=== PATIENT | male | born 1960 | race Caucasian/White ===

== ENCOUNTER 2019-07-25 05:18 | Day surgery (SDC) | payer OTHER ==
[2019-07-25] VITALS (10 sets, daily range): BP systolic 101–148; BP diastolic 50–88
[~2019-07-25] VITALS: Ht 160 cm; Wt 84.8 kg
[~2019-07-25 05:18] MED LIST: METOPROLOL TART25 MG ORAL; TRIAMTERENE-HC1 EAC6 ORAL; ceFAZolin sod 1 GM in NS 55 ML IVPB ONE
[2019-07-25] MEDS ORDERED: cefOXitin 1gm Inj ONE (07:06)
[2019-07-25] MEDS ORDERED: Succinylcholine 20mg/ml 10ml vial ONE (07:07)
[2019-07-25] MEDS ORDERED: Rocuronium Bromide 50mg/5ml Inj IV ONE (07:07)
[2019-07-25] MEDS ORDERED: fentaNYL 100 mcg/2 mL IV ONE (07:09)
[2019-07-25] MEDS ORDERED: Propofol 200mg/20ml IV ONE ×2 (07:10→08:02)
[2019-07-25] MEDS ORDERED: Lidocaine 1% MPF 10mg/ml 5ml ONE (07:10)
[2019-07-25] MEDS ORDERED: Midazolam 2mg/2ml Inj ONE (07:10)
[2019-07-25] MEDS ORDERED: Iothalamate Meglumine 60% 50ML INJ ONE (07:28)
[2019-07-25] MEDS ORDERED: NS Irrig 1000ml ONE (07:30)
[2019-07-25] MEDS ORDERED: LR 1000ml ONE (07:30)
[2019-07-25] MEDS ORDERED: Sterile Water Irrig 1000ml IRRIG ONE (07:30)
[2019-07-25] MEDS ORDERED: NS Irrig 2000ml IRRIG ONE ×2 (07:30→08:10)
[2019-07-25] MEDS ORDERED: Neostigmine 1mg/ml 10ml Inj ONE (07:30)
[2019-07-25] MEDS ORDERED: Sterile Water Irrig 2000ml IRRIG ONE ×2 (07:30→08:20)
--- NOTE | 2019-07-25 07:44 | Pre-Procedure Note/Attestation ---
Pre-Procedure Note/Attestation Complete Prior to Procedure Planned Procedure: bilateral Procedure Narrative: cysto, RPG, bladder biopsy, TURBT Indications for Procedure Pre-Operative Diagnosis: bladder tumor Attestation I attest that I discussed the nature of the procedure; its benefits; risks and complications; and alternatives (and the risks and benefits of such alternatives ), prior to the procedure, with the patient (or the patient's legal fulfillment representative). I attest that, if there was a reasonable possibility of needing a blood transfusion, the patient (or the patient's legal fulfillment representative) was given the [facility] standardized written summary, pursuant to the Quinn Corey Blood Safety Act ([place] Health and Safety Code # 1645, as amended). I attest that I re-evaluated the patient just prior to the surgery and that there has been no change in the patient's H&P, except as documented below: Andrés Segundo MD Jul 25, 2019 07:44
--- NOTE | 2019-07-25 07:44 | Urology Progress Note ---
Assessment/Plan Assessment/Plan: hematuria hx bladder tumor BPH proceed with TURBT,/bx/RPG preop labs and imaging noted cardiac cleared d/w pt fully Subjective Allergies: Coded Allergies: TETRACYCLINES (Verified Allergy, Severe, PALPITATIONS, HIVES, 07/25/19) Subjective for surg today Objective Last 24 Hour Vital Signs Date Time Temp Pulse Resp B/P (MAP) Pulse Ox O2 Delivery O2 Flow Rate FiO2 07/25/19 05:56 98.4 83 20 148/88 99 Room Air 07/25/19 05:51 Room Air Height (Feet): 5 Height (Inches): 3.00 Weight (Pounds): 187 Objective exam stable Andrés Segundo MD Jul 25, 2019 07:44
[2019-07-25] MEDS ORDERED: Ketorolac 30mg Inj ONE (08:03)
[2019-07-25] MEDS ORDERED: LR 1000ml 1,000 ML IVLG SCH (08:22)
--- NOTE | 2019-07-25 08:22 | Anethesia Preoperative Eval ---
Anesthesia Pre-op PMH/ROS General Date of Evaluation: Jul 25, 2019 Time of Evaluation: 07:18 Anesthesiologist: Jim ASA Score: ASA 2 Mallampati Score Class I : Soft palate, uvula, fauces, pillars visible Class II: Soft palate, uvula, fauces visible Class III: Soft palate, base of uvula visible Class IV: Only hard plate visible Mallampati Classification: Class II Surgeon: Sanya Diagnosis: Bladder tumor Surgical Procedure: Cysto TURBT Anesthesia History: none Family History: no anesthesia problems Allergies: Coded Allergies: TETRACYCLINES (Verified Allergy, Severe, PALPITATIONS, HIVES, 07/25/19) Medications: see eMAR Patient NPO?: Yes Past Medical History Cardiovascular: Reports: HTN - stable on pills Pulmonary: Denies: asthma, COPD, BRANDON, other Gastrointestinal/Genitourinary: Reports: GERD; Denies: CRI, ESRD, other Neurologic/Psychiatric: Denies: dementia, CVA, depression/anxiety, TIA, other Endocrine: Denies: DM, hypothyroidism, steroids, other HEENT: Denies: cataract (L), cataract (R), glaucoma, EKUK (L), EKUK (R), other Hematology/Immune: Denies: anemia, DVT, bleeding disorder, other Musculoskeletal/Integumentary: Denies: OA, RA, DJD, DDD, edema, other Other: other - overweight PMH Narrative: as above PSxH Narrative: none Anesthesia Pre-op Phys. Exam Physician Exam Last Vital Signs Date Time Temp Pulse Resp B/P (MAP) Pulse Ox O2 Delivery O2 Flow Rate FiO2 07/25/19 05:56 98.4 83 20 148/88 99 Room Air Constitutional: NAD Neurologic: CN 2-12 intact Cardiovascular: RRR Respiratory: CTA Gastrointestinal: S/NT/ND Airway Exam Mallampati Score: Class II MO: full Neck: flexible ROM: full Teeth: intact Dentures: no upper, no lower Anesthesia Pre-op A/P Labs see chart Studies Pre-op Studies: EKG - SR Risk Assessment & Plan Assessment: ASA 2 Plan: GA with ETT Status Change Before Surgery: No Pre-Antibiotics Drug: Cefoxitin 1gr Given Within 1 Hr of Incision: Yes Time Given: 08:05 Jl Fernandez MD Jul 25, 2019 08:22
[2019-07-25] MEDS ORDERED: Glycopyrrolate 0.2mg/ml 1ml Vial ONE (08:24)
[2019-07-25] MEDS ORDERED: Hydromorphone 0.5mg/0.5ml inj IVP PRN (08:30)
[2019-07-25] MEDS ORDERED: DiphenhydrAMINE 50mg/ml Inj IVP PRN (08:30)
[2019-07-25] MEDS ORDERED: Ketorolac 30mg Inj IV PRN (08:30)
--- NOTE | 2019-07-25 08:53 | Brief Operative Note ---
Immediate Post Operative Note Operative Note Pre-op Diagnosis: bladder tumor Procedure: cysto, urethral calib, bilat RPG, bladder bx, TURBT Post-op Diagnosis: same as pre-op plus - urethral stricture Surgeon: raymond Anesthesiologist: sabrina Anesthesia: general Specimen: yes Complications: none Condition: stable Fluids: NS Estimated Blood Loss: minimal Implant(s) used?: No Andrés Segundo MD Jul 25, 2019 08:53
--- NOTE | 2019-07-25 09:08 | Immediate Post-Op Evaluation ---
Immediate Post-Op Evalulation Immediate Post-Op Evalulation Procedure: Cysto retrograde pyelogram TURBT Date of Evaluation: Jul 25, 2019 Time of Evaluation: 09:07 IV Fluids: 800 Blood Products: none Estimated Blood Loss: n/a Urinary Output: n/a Blood Pressure Systolic: 104 Blood Pressure Diastolic: 56 Pulse Rate: 76 Respiratory Rate: 20 O2 Sat by Pulse Oximetry: 99 Temperature (Fahrenheit): 98.1 Pain Score (1-10): 1 Nausea: No Vomiting: No Complications none Patient Status: awake, patent, none Hydration Status: adequate Jl Fernandez MD Jul 25, 2019 09:08
--- NOTE | 2019-07-25 10:22 | 48 Hour Post Anesthesia Eval ---
Post Anesthesia Evaluation Procedure: Cysto retrograde pyelogram TURBT Date of Evaluation: Jul 25, 2019 Time of Evaluation: 10:20 Blood Pressure Systolic: 132 0: 56 Pulse Rate: 68 Respiratory Rate: 20 Temperature (Fahrenheit): 97.8 O2 Sat by Pulse Oximetry: 98 Airway: patent Nausea: No Vomiting: No Pain Intensity: 1 Hydration Status: adequate Cardiopulmonary Status: stable Mental Status/LOC: patient returned to baseline Follow-up Care/Observations: n/a Post-Anesthesia Complications: none Follow-up care needed: ready to discharge Jl Fernandez MD Jul 25, 2019 10:22
--- NOTE | 2019-07-25 11:15 | Operative Note - Dictated ---
DATE OF OPERATION: 07/25/2019 PREOPERATIVE DIAGNOSIS: Bladder tumor. POSTOPERATIVE DIAGNOSES: Bladder tumor and also urethral stricture. PROCEDURE PERFORMED: Cystoscopy, urethral calibration with bilateral retrograde pyelogram, random bladder biopsies, and transurethral resection of bladder tumor. OPERATING SURGEON: Andrés Segundo M.D. ANESTHESIOLOGIST: Jl Fernandez M.D. ANESTHESIA: General. INDICATION FOR PROCEDURE: This is a pleasant 58-year-old male. He has a history of hematuria. He had a recent workup that showed bladder tumor consistent with primary urothelial carcinoma. He had a CT scan that did not show any metastasis. He was brought in for resection of the tumor. The nature of the procedure including possible risks and complication of bleeding, infection, anesthesia, damage to the urethra, bladder, need for further surgeries, etc. were discussed. No guarantees were given or implied. FINDINGS: The patient had a papillary bladder tumor at the right lateral posterior wall. There was a small satellite lesion next to it. The rest of the bladder was clear. Bilateral pyelograms were normal. He had an incidental finding of severe bulbar urethral stenosis. PROCEDURE IN DETAIL: Informed consent was obtained from the patient. The patient was then brought to the operating room and then placed in supine position. After successful general anesthesia was induced, the patient was then placed in a modified dorsal lithotomy position. Genitalia was then prepped and draped in usual sterile fashion. Preoperative IV antibiotics were administered. A time-out was performed. The patient was noted to have meatal stenosis, which was dilated. Cystoscopy was performed. The patient had significant stenosis at the meatus and his distal urethra with significant resistance to even passage of the cystoscope. The prostate was mildly obstructed. The bladder was inspected carefully with both the 30 and 70 degree lenses. The patient had a papillary tumor of the right posterior lateral wall, which I would estimate was about maybe 2 cm or so with a small satellite lesion next to it. The rest of the bladder was clear, both ureteral orifices with clear efflux. At this point, the right ureteral orifice was cannulated with an open-ended catheter. Retrograde pyelogram was done, which showed normal upper tract without filling defects and this was also repeated on the left side with similar findings. At this point, using the cold cup biopsy forceps, random biopsies were taken from the posterior left lateral side of the bladder and I also removed a small satellite lesion. The biopsy sites were then controlled with the Bugbee electrode, good hemostasis was obtained. Cystoscope was removed. I then attempted to insert the resectoscope sheath with the Visual Obturator and there was significant resistance noted at the meatus and bulbar urethra. Even with dilation up to 30-Bruneian, it was very difficult to pass the resectoscope sheath. I was eventually able to get it to go with significant lubrication with the Visual Obturator into the bladder at which time, using the 24-Bruneian loop with bipolar system, the tumor was then resected down to the base. I was able to get down to what appeared to be muscle layers. The entire tumor was resected. The base of it was extensively fulgurated. Excellent hemostasis was obtained. This resectoscope sheath was removed again with resistance and a 20-Brune[place] catheter was placed and irrigated well. The patient was awakened and was taken to the recovery in stable condition. Blood loss is minimal. No complications. Andrés Segundo M.D. DR: MAGALIE JOB#: [id number] CC:
--- NOTE | 2019-07-25 17:09 | Diagnostic Imaging Report ---
INDICATION: Pain, intraoperative, history of bladder tumor, intraoperative imaging during retrograde pyelography by Dr. Shelley at TECHNIQUE: Intraoperative imaging Fluoroscopy time: 20.5 seconds Total dose: 0.88984 mGym2 Total number of images: 8 COMPARISON: None FINDINGS: Intraoperative images demonstrate opacification of normal caliber bilateral ureters and renal collecting systems IMPRESSION: Intraoperative imaging, as described
== END 2019-07-25 11:00 | disposition home or self-care (01) ==
LOC: SUR 05:18
DX: C67.9 Malignant neoplasm of bladder, unspecified (principal); C68.0 Malignant neoplasm of urethra; N35.911 Unspecified urethral stricture, male, meatal; I10 Essential (primary) hypertension; K21.9 Gastro-esophageal reflux disease without esophagitis; E66.3 Overweight; Z68.33 Body mass index [BMI] 33.0-33.9, adult; Z88.8 Allergy status to other drugs, medicaments and biological substances
CPT/HCPCS: 52005; 52204; 52235; 52281; 74420; 76000; J0330; J0694; J1885; J2250; J2704; J2710; J3010; J7120; 94003; 94150

== ENCOUNTER → 2020-04-04 | Day surgery (SDC) | payer OTHER ==
[2020-04-04] VITALS (12 sets, daily range): BP systolic 106–166; BP diastolic 41–89
[~2020-04-04] VITALS: Ht 167.6 cm; Wt 81.6 kg
[~2020-04-04] MED LIST changes: +DiphenhydrAMINE 50mg/ml Inj IVP PRN; +Hydromorphone 0.5mg/0.5ml inj IVP PRN; +Hydromorphone 0.5mg/0.5ml inj ONE; +Iothalamate Meglumine 60% 50ML INJ ONE; +Ketorolac 30mg Inj IV PRN; +Ketorolac 30mg Inj ONE; +LORazepam Inj 2mg/ml 1ml IV PRN; +LR 1000ml 1,000 ML IVLG SCH; +Labetalol 5mg/ml 20ml vial IV PRN; +Lidocaine 1% MPF 10mg/ml 5ml ONE; +Midazolam 2mg/2ml Inj IVP PRN; +Midazolam 2mg/2ml Inj ONE; +NS Irrig 1000ml ONE; +Sterile Water Irrig 1000ml IRRIG ONE; +fentaNYL 100 mcg/2 mL IV ONE; +fentaNYL 100 mcg/2 mL IV PRN
--- NOTE | 2020-04-04 06:33 | Anethesia Preoperative Eval ---
Anesthesia Pre-op PMH/ROS General Date of Evaluation: Apr 04, 2020 Anesthesiologist: Terry ASA Score: ASA 2 Mallampati Score Class I : Soft palate, uvula, fauces, pillars visible Class II: Soft palate, uvula, fauces visible Class III: Soft palate, base of uvula visible Class IV: Only hard plate visible Mallampati Classification: Class II Surgeon: Sanya Diagnosis: Hematuria Surgical Procedure: cystoscopy, urethrotomy, lateral biopsy, retrograde pyelogram Anesthesia History: none Family History: no anesthesia problems Allergies: Coded Allergies: TETRACYCLINES (Verified Allergy, Severe, PALPITATIONS, HIVES, 04/04/20) Medications: see eMAR Patient NPO?: Yes NPO Date: Apr 04, 2020 NPO Time: 00:00 Past Medical History Cardiovascular: Reports: HTN; Denies: CAD, [place], valve dz, arrhythmia, other Pulmonary: Denies: asthma, COPD, BRANDON, other Gastrointestinal/Genitourinary: Reports: other - h/o bladder tumor; Denies: GERD, CRI, ESRD Neurologic/Psychiatric: Denies: dementia, CVA, depression/anxiety, TIA, other Endocrine: Denies: DM, hypothyroidism, steroids, other HEENT: Denies: cataract (L), cataract (R), glaucoma, UTE (L), UTE (R), other Hematology/Immune: Denies: anemia, DVT, bleeding disorder, other Musculoskeletal/Integumentary: Denies: OA, RA, DJD, DDD, edema, other PSxH Narrative: TURBT Anesthesia Pre-op Phys. Exam Physician Exam Last Vital Signs Date Time Temp Pulse Resp B/P (MAP) Pulse Ox O2 Delivery O2 Flow Rate FiO2 04/04/20 06:23 Room Air 04/04/20 06:22 98.6 80 18 143/88 98 Constitutional: NAD Cardiovascular: RRR Respiratory: CTA Airway Exam Mallampati Score: Class II MO: full ROM: full Anesthesia Pre-op A/P Labs see chart Studies Pre-op Studies: EKG - sr Risk Assessment & Plan Assessment: ASA II Plan: GA Status Change Before Surgery: No Pre-Antibiotics Drug: TBD Given Within 1 Hr of Incision: Yes Brianna Stewart MD Apr 04, 2020 06:33
--- NOTE | 2020-04-04 07:09 | Pre-Procedure Note/Attestation ---
Pre-Procedure Note/Attestation Complete Prior to Procedure Planned Procedure: bilateral Procedure Narrative: cystoscopy, optic urethrotomy, urethral dilation, bladder biopsy, bilateral retrograde pyelograms Indications for Procedure Pre-Operative Diagnosis: urethral stricture, bladder ca hx Attestation I attest that I discussed the nature of the procedure; its benefits; risks and complications; and alternatives (and the risks and benefits of such alternatives), prior to the procedure, with the patient (or the patient's legal hospital insurance representative). I attest that, if there was a reasonable possibility of needing a blood transfusion, the patient (or the patient's legal hospital insurance representative) was given the [facility] standardized written summary, pursuant to the Quinn Corey Blood Safety Act ([place] Health and Safety Code # 1645, as amended). I attest that I re-evaluated the patient just prior to the surgery and that there has been no change in the patient's H&P, except as documented below: Andrés Segundo MD Apr 04, 2020 07:09
--- NOTE | 2020-04-04 07:10 | Urology Progress Note ---
Assessment/Plan Assessment/Plan: urethral stricture bladder cancer hx plan to proceed with surg today medically cleared d/w pt fully Subjective Allergies: Coded Allergies: TETRACYCLINES (Verified Allergy, Severe, PALPITATIONS, HIVES, 04/04/20) Subjective for surgery today Objective Last 24 Hour Vital Signs Date Time Temp Pulse Resp B/P (MAP) Pulse Ox O2 Delivery O2 Flow Rate FiO2 04/04/20 06:23 Room Air 04/04/20 06:22 98.6 80 18 143/88 98 Room Air Height (Feet): 5 Height (Inches): 6.00 Weight (Pounds): 180 Objective exam stable Andrés Segundo MD Apr 04, 2020 07:10
--- NOTE | 2020-04-04 09:02 | Brief Operative Note ---
Immediate Post Operative Note Operative Note Pre-op Diagnosis: urethral stricture, bladder ca hx Procedure: cystoscopy, optic urethrotomy, urethral calibration, bilateral retrograde pyelograms, bladder biopsy and fulguration, cystogram Post-op Diagnosis: same as pre-op Findings: other - dense long-segment urethral stricture, bilat RPG normal, two small papillary lesions prox to ant bladder neck c/w early urothelial ca Surgeon: raymond Anesthesiologist: kalyn Anesthesia: general Specimen: yes Complications: none Condition: stable Fluids: sterile water Estimated Blood Loss: minimal Drains: none Implant(s) used?: No Andrés Segundo MD Apr 04, 2020 09:02
--- NOTE | 2020-04-04 09:07 | Immediate Post-Op Evaluation ---
Immediate Post-Op Evalulation Immediate Post-Op Evalulation Procedure: cystoscopy, bladder biopsy, bilateral retrograde pyelogram Date of Evaluation: Apr 04, 2020 Time of Evaluation: 09:09 IV Fluids: 600 Blood Products: 0 Estimated Blood Loss: min Urinary Output: 0 Blood Pressure Systolic: 106 Blood Pressure Diastolic: 61 Pulse Rate: 53 Respiratory Rate: 16 O2 Sat by Pulse Oximetry: 100 Temperature (Fahrenheit): 97.3 Pain Score (1-10): 0 Nausea: No Vomiting: No Complications 0 Patient Status: awake Hydration Status: adequate Drug: ancef 1g Given Within 1 Hr of Incision: Yes Brianna Stewart MD Apr 04, 2020 09:07
--- NOTE | 2020-04-04 09:07 | 48 Hour Post Anesthesia Eval ---
Post Anesthesia Evaluation Procedure: cystoscopy, bladder biopsy, bilateral retrograde pyelogram Date of Evaluation: Apr 04, 2020 Airway: patent Nausea: No Vomiting: No Pain Intensity: 0 Hydration Status: adequate Cardiopulmonary Status: at baseline Mental Status/LOC: patient returned to baseline Post-Anesthesia Complications: 0 Follow-up care needed: ready to discharge Brianna Stewart MD Apr 04, 2020 09:07
--- NOTE | 2020-04-04 21:15 | Operative Note - Dictated ---
DATE OF OPERATION: 04/04/2020 PREOPERATIVE DIAGNOSIS: History of bladder cancer, history of severe urethral stricture. POSTOPERATIVE DIAGNOSIS: History of bladder cancer, history of severe urethral stricture. PROCEDURE PERFORMED: Cystoscopy, optic urethrotomy, urethral calibration, bilateral retrograde pyelograms, bladder biopsies, extensive fulguration and cystogram. OPERATING SURGEON: Andrés Segundo MD. ANESTHESIOLOGIST: Brianna Stewart MD. ANESTHESIA: General. INDICATION FOR PROCEDURE: This is a very pleasant 59-year-old male who has a history of a bladder tumor, which was resected earlier this year and this was consistent with urothelial carcinoma. At that time, he was noted to have urethral stenosis and some difficulty with passage of the resectoscope sheath and after the surgery he developed severe urethral stricture. Because of the stricture, I was not able to do a surveillance cystoscopy in the office, however, he did have fish tests that have been negative. A decision was made to bring him back for cystoscopy in the operating room to open up the stricture and look at the bladder. He was awaiting cardiac clearance, which was finally obtained and he was scheduled for the above procedure. Possible risks and complication of bleeding, infection, anesthesia, damage to the urethra, worsening stricture, recurrence, etc. discussed and no guarantees were given or implied. FINDINGS: The patient had very severe dense stricture which was long segment stricture mainly in the penile and bulbar urethra. He had a couple of small papillary lesions in the bladder, just proximal to the bladder neck in the very difficult accessible area which were fulgurated. Bilateral retrograde pyelograms were normal. PROCEDURE IN DETAIL: Informed consent was obtained from the patient. The patient was brought to the operating room and placed in supine position. After successful general anesthesia was induced, the patient was then placed in a modified dorsal lithotomy position. Genital area was then prepped and draped in the usual sterile fashion. Preoperative IV antibiotics were administered. A time-out was performed. Upon initial evaluation, the patient was noted to have a stenotic meatus, which was gently dilated and the cystoscope sheath was then inserted and about 2 or 3 cm proximal to the meatus was a stricture, which was dense. I was able to pass a glidewire through the stricture into the bladder. This was left as a safety wire. The urethrotome was then inserted and under vision, the stricture was opened at the 6 o'clock and 12 o'clock positions. It appeared to be very dense and hard. It was a long segment. After the stricture was incised, it was still very difficult to pass the urethrotome sheath through. The urethrotome was removed and the stricture was then dilated over the wire with Davila sounds to about 28-Kiswahili and again it was very dense and it was very difficult to even pass the Davila sounds. I eventually was able to pass the cystoscope sheath through and get through the prostate, which was mildly obstructed, fossa was about 2 cm. The bladder was inspected carefully. I looked with a 30-degree lens. Both ureteral orifices showed clear efflux and I did not see any obvious tumors. However, when I switched over to a 70-degree lens, there was a couple of small papillary tumors which were just proximal to the bladder neck at the 12 o'clock position. I then switched back over to a 30 degree lens. The right ureteral orifice was cannulated with open-ended catheter. Retrograde pyelogram was done which was normal with no filling defects. This was repeated on the left side with similar findings. At this point, I used a cold cup biopsy forceps to take random biopsies from both the right posterior and left posterior brink of the bladder. I then wanted to biopsy and resect the papillary tumors, however, the position of the tumors were such that they were not visible at all with a 30-degree lens in any type of position even with pushing on the bladder from the above, I could not see them. When I reinserted the 70-degree lens I could see the tumors, but with the 70-degree lens I was not able to resect them or remove them with the biopsy forceps. This was again tried with a 30-degree lens and it was impossible, and I was not able to insert the resectoscope sheath through this tight stricture to get to the area. After multiple tries, a decision was made just to fulgurate the lesions which were small, I would say maybe 0.5 cm or so. I then used a Bugbee electrode with a 70-degree lens, which was very difficult to get to the lesion, however, eventually with the use of a deflector I was able to get the Bugbee to be able to go through the area of the tumor and I extensively cauterized any visible tumor and I was able to destroy all of it. There were no other tumors visible. At this point, cystoscope was removed and I was able to pass a 22-Kisw[place]ili Councill-tip catheter over the wire into the bladder. I was able to irrigate the catheter. Cystogram was done. Position was good. The patient was awakened and was taken to recovery in stable condition. Blood loss is minimal. No complications. Andrés Segundo M.D. DR: MARTÍN JOB#: [id number] CC:
--- NOTE | 2020-04-05 14:36 | Diagnostic Imaging Report ---
INDICATION: Pain, intraoperative TECHNIQUE: Intraoperative imaging Fluoroscopy time: 55.8 seconds Total dose: 0.33697 mGym2 Total number of images: 9 COMPARISON: None FINDINGS: Intraoperative images demonstrate opacification of the right and left ureters. Normal caliber collecting systems and ureters. IMPRESSION: Intraoperative imaging, as described
== END | disposition home or self-care (01) ==
LOC: SUR 05:42
DX: N35.919 Unspecified urethral stricture, male, unspecified site (principal)
CPT/HCPCS: 52005; 52204; 52224; 52275; 52341; 74420; 76000; 94003; J0690; J1170; J1885; J2250; J2704; J3010; U0004; 94150